=== PATIENT | male | born 1990 | race Caucasian/White ===

== ENCOUNTER 2018-07-22 01:24 | Emergency (ER) | payer OTHER ==
[~2018-07-22] VITALS: Ht 167.6 cm; Wt 52.6 kg
[2018-07-22 01:48] VITALS: Ht 167.6 cm; Wt 52.6 kg
[2018-07-22 05:43] VITALS: BP 117/73
== END 2018-07-22 05:43 | disposition home or self-care (01) ==
LOC: ED 01:24
DX: R51 Headache (principal)
CPT/HCPCS: J1885; Q0162